=== PATIENT | female | born 1975 | race Caucasian/White ===

== ENCOUNTER 2024-02-03 06:51 | Day surgery (SDC) | payer OTHER ==
[~2024-02-03] VITALS: Ht 154.9 cm; Wt 68.9 kg
[2024-02-03] MEDS ORDERED: LIDOCAINE 2% 100 MG/5 ML UJET TP ONE (08:00)
[2024-02-03] MEDS ORDERED: fentaNYL citrate 0.05 MG/ML VIAL ONE (08:00)
[2024-02-03] MEDS ORDERED: MIDAZOLAM 5 MG/5 ML VIAL ONE (08:00)
[2024-02-03] MEDS: fentaNYL citrate 0.05 MG/ML VIAL IVP ONE (08:20)
== END 2024-02-03 09:09 | disposition home or self-care (01) ==
LOC: MDS 06:51 → MMU 06:55 → MDS 09:09
PROVIDERS: ATTEND Internal Medicine Gastroenterology
DX: Z12.11 Encounter for screening for malignant neoplasm of colon (principal); K63.5 Polyp of colon; K76.0 Fatty (change of) liver, not elsewhere classified; Z98.51 Tubal ligation status; Z79.899 Other long term (current) drug therapy; Z98.890 Other specified postprocedural states
CPT/HCPCS: 45385; J3010; J2250